=== PATIENT | male | born 1990 | race Caucasian/White ===

== ENCOUNTER → 2021-10-30 | Day surgery (SDC) | payer SELFPAY ==
[2021-10-24 13:26] LABS: Absolute Lymphocytes (CBC) 2.9 K/uL (0.7-4.9); Hematocrit 44.3 % (39.6-49.0); Lymphocytes % 34.2 % (15.3-44.8); MPV 7.9 fL (7.6-11.3); RBC Red Blood Cell Count 5.09 M/uL (4.33-5.43)
[~2021-10-30] MED LIST: FENTANYL CITR 100 MCG/2 ML ONE; KETAMINE HCL 500 MG/5 ML VIAL ONE; KETOROLAC 30 MG/ML INJ ONE; LIDOCAINE 2% MPF 5 ML VIAL ONE; MIDAZOLAM HCL 2 MG/2 ML INJ ONE; NA CHLORIDE 0.9% 50 ML ONE; ONDANSETRON 4 MG/2 ML VIAL ONE; Ringers Lactate 1,000 ML IV ONE; dexAMETHasone 10 MG/ML VIAL ONE; propofoL 200 MG/20 ML VIAL IV ONE
[2021-10-30] MEDS: CEFOXITIN SODIUM 1 GM/VIAL ONE ×2 (08:15→09:00)
--- NOTE | 2021-10-30 09:38 | P.OP ---
Marketing Operations Coordinator: NONE,NONE Preoperative diagnosis: Thrombosed hemorrhoid Postoperative diagnosis: Same Primary procedure: Exam under anesthesia, rigid proctoscopy and hemorrhoidectomy Anesthesia: General Estimated blood loss: Minimal Specimen: Left lateral thrombosed hemorrhoid Findings: As above Operative Technique: Patient brought to the OR placed in the supine position general anesthesia begun. Patient placed in the lithotomy position and prepped and draped in the usual standard fashion. Exam under anesthesia revealed a large thrombosed hemorrhoid in the left lateral aspect of the anal canal, it was an external hemorrhoid. Rigid proctoscopy did not show any other evidence of disease inside the anal canal. Harmonic scalpel utilized to excise the thrombosed hemorrhoid. Prior to that, Marcaine 0.5% was infiltrated for postop pain control. The thrombosed hemorrhoid was sent to pathology after being appropriately labeled. 4-0 chromic was utilized to close the open wound partially. A small opening was left for drainage purposes. Sterile dressing applied, patient awakened and taken to recovery in good general condition.
[2021-10-30 10:11] VITALS: O2SAT 99
[2021-10-30 11:36] VITALS: BP 128/81; TEMP 97
== END | disposition home or self-care (01) ==
LOC: OR 07:08
PROVIDERS: ATTEND Surgery
PROC: 06BY0ZC Excision of Hemorrhoidal Plexus, Open Approach (ICD-10-PCS; 2021-10-30)
PROC: 0DJD8ZZ Inspection of Lower Intestinal Tract, Via Natural or Artificial Opening Endoscopic (ICD-10-PCS; principal; 2021-10-30 09:00)
DX: K64.5 Perianal venous thrombosis (principal); Z20.822 Contact with and (suspected) exposure to COVID-19
CPT/HCPCS: 36415; 85025; 88302; 88304; J0694; J1100; J2250; J2405; J2704; J3010; J7120; U0003